=== PATIENT | female | born 1980 | race African-American/Black ===

== ENCOUNTER 2017-11-07 21:45 | Emergency (ER) | payer OTHER, MEDICAID ==
[~2017-11-07] VITALS: Ht 160 cm; Wt 130.5 kg
[2017-11-08 00:55] VITALS: BP 137/58
[2017-11-08] MEDS ORDERED: SODIUM CHLORIDE 0.9% 1,000 ML IV ONE (01:00)
[2017-11-08 01:23] LABS: CHLORIDE 106 mEq/L (98-107)
[2017-11-08 01:27] LABS: BASOPHILS % 0.5 % (0.0-2.0); EOSINOPHILS % 2.7 % (0.0-5.0); HEMATOCRIT. 31.8 % (36.0-48.0); HEMOGLOBIN. 10.3 g/dL (12.0-16.0); LYMPHOCYTES % 13.1 % (20.0-50.0); MEAN CORPUSCULAR VOLUME 82.9 fL (81.0-99.0); MEAN PLATELET VOLUME 7.9 fl (7.4-10.4); MONOCYTES % 8.8 % (2.0-8.0); NEUTROPHILS % 74.9 % (40.0-76.0); PLATELET 296 x1000/uL (130-400); RED BLOOD CELL COUNT 3.84 mill/uL (4.2-5.4); RED CELL DISTRIBUTION WIDTH 16.2 % (11.6-14.6)
[2017-11-08 01:36] LABS: CLARITY URINE CLEAR (CLEAR); COLOR URINE YELLOW (YELLOW); KETONES URINE TRACE (NEGATIVE); LEUKOCYTE ESTERASE URINE NEGATIVE (NEGATIVE); NITRITE URINE NEGATIVE (NEGATIVE); OCCULT BLOOD URINE NEGATIVE (NEGATIVE); PROTEIN URINE NEGATIVE (NEGATIVE); SPECIFIC GRAVITY URINE 1.031 (1.005-1.030)
[2017-11-08 01:54] LABS: *AMPHETAMINES SCREEN URINE NEGATIVE (NEGATIVE); *BARBITURATES SCREEN URINE NEGATIVE (NEGATIVE); *BENZODIAZEPINES SCREEN URINE NEGATIVE (NEGATIVE); *COCAINE SCREEN URINE NEGATIVE (NEGATIVE); CANNABINOID URINE SCREEN NEGATIVE (NEGATIVE); METHADONE URINE SCREEN NEGATIVE (NEGATIVE); OPIATES URINE SCREEN NEGATIVE (NEGATIVE); PHENCYCLIDINE URINE SCREEN NEGATIVE (NEGATIVE)
== END 2017-11-08 02:24 | disposition home or self-care (01) ==
LOC: ER 21:45
DX: R42 Dizziness and giddiness (principal); D50.9 Iron deficiency anemia, unspecified
CPT/HCPCS: 36415; 80048; 80305; 81003; 81025; 85025; 93005; 99285; J7030

== ENCOUNTER 2017-12-24 19:22 | Emergency (ER) | payer MEDICARE, MEDICAID ==
[~2017-12-24] VITALS: Ht 167.6 cm; Wt 137.2 kg
[2017-12-24 20:32] VITALS: BP 146/93
== END 2017-12-24 22:58 | disposition home or self-care (01) ==
LOC: ER 20:51
DX: S16.1XXA Strain of muscle, fascia and tendon at neck level, initial encounter (principal); M54.6 Pain in thoracic spine; V49.88XA Car occupant (driver) (passenger) injured in other specified transport accidents, initial encounter; Y93.89 Activity, other specified; Y99.8 Other external cause status; Y92.410 Unspecified street and highway as the place of occurrence of the external cause; Z98.890 Other specified postprocedural states
CPT/HCPCS: 81025; 99282

== ENCOUNTER 2018-10-23 19:19 | Emergency (ER) | payer MEDICARE, OTHER ==
[~2018-10-23] VITALS: Ht 172.7 cm; Wt 118.0 kg
[2018-10-23 21:08] LABS: BASOPHILS % 0.4 % (0.0-2.0); EOSINOPHILS % 0.9 % (0.0-5.0); HEMATOCRIT. 38.4 % (36.0-48.0); HEMOGLOBIN. 12.6 g/dL (12.0-16.0); LYMPHOCYTES % 19.5 % (20.0-50.0); MEAN CORPUSCULAR HEMOGLOBIN 28.4 pg (28.0-32.0); MEAN CORPUSCULAR VOLUME 86.3 fL (81.0-99.0); MEAN PLATELET VOLUME 8.6 fl (7.4-10.4); MONOCYTES % 5.9 % (2.0-8.0); NEUTROPHILS % 73.3 % (40.0-76.0); PLATELET 288 x1000/uL (130-400); RED BLOOD CELL COUNT 4.45 mill/uL (4.2-5.4); RED CELL DISTRIBUTION WIDTH 15.4 % (11.6-14.6)
[2018-10-23 21:09] LABS: CHLORIDE 105 mEq/L (98-107)
[2018-10-23 21:16] LABS: ETHANOL BLOOD < 10 mg/dL
[2018-10-23 23:07] LABS: CLARITY URINE CLEAR (CLEAR); COLOR URINE YELLOW (YELLOW); KETONES URINE NEGATIVE (NEGATIVE); LEUKOCYTE ESTERASE URINE NEGATIVE (NEGATIVE); NITRITE URINE NEGATIVE (NEGATIVE); OCCULT BLOOD URINE TRACE (NEGATIVE); PH URINE 5.5 (4.5-8.0); PROTEIN URINE NEGATIVE (NEGATIVE); SPECIFIC GRAVITY URINE 1.012 (1.005-1.030)
[2018-10-23 23:20] LABS: *BARBITURATES SCREEN URINE NEGATIVE (NEGATIVE)
[2018-10-23 23:21] LABS: *AMPHETAMINES SCREEN URINE NEGATIVE (NEGATIVE); *BENZODIAZEPINES SCREEN URINE NEGATIVE (NEGATIVE); *COCAINE SCREEN URINE NEGATIVE (NEGATIVE); METHADONE URINE SCREEN NEGATIVE (NEGATIVE); OPIATES URINE SCREEN NEGATIVE (NEGATIVE); PHENCYCLIDINE URINE SCREEN NEGATIVE (NEGATIVE)
[2018-10-23 23:22] LABS: CANNABINOID URINE SCREEN NEGATIVE (NEGATIVE)
[2018-10-24 03:16] VITALS: BP 134/83
== END 2018-10-24 03:08 | disposition home or self-care (01) ==
LOC: ER 19:19
DX: R42 Dizziness and giddiness (principal); R20.2 Paresthesia of skin; H54.8 Legal blindness, as defined in USA
CPT/HCPCS: 36415; 80053; 80305; 81003; 81025; 84484; 85025; 99283; G0482

== ENCOUNTER 2019-02-17 13:34 | Emergency (ER) | payer MEDICARE, MEDICAID ==
[~2019-02-17] VITALS: Ht 167.6 cm; Wt 109.0 kg
[2019-02-17 13:39] VITALS: BP 135/78
[2019-02-17] MEDS ORDERED: FLUORESCEIN SODIUM 1MG/STRIP BOTHEYE ONE (14:15)
== END 2019-02-17 15:25 | disposition home or self-care (01) ==
LOC: ER 13:34
DX: H53.8 Other visual disturbances (principal); F32.9 Major depressive disorder, single episode, unspecified; F20.9 Schizophrenia, unspecified; Z98.890 Other specified postprocedural states
CPT/HCPCS: 99283

== ENCOUNTER 2019-12-14 03:26 | Emergency (ER) | payer MEDICARE, MEDICAID ==
[~2019-12-14] VITALS: Ht 170.2 cm; Wt 100.0 kg
[2019-12-14] MEDS ORDERED: LORAZEPAM 2MG/ML CPJ IM ONE (05:45)
[2019-12-14] MEDS ORDERED: OLANZAPINE 10 MG/VIAL IM ONE (05:45)
[2019-12-14 06:08] LABS: BASOPHILS % 0.6 % (0.0-2.0); EOSINOPHILS % 0.7 % (0.0-5.0); HEMATOCRIT. 35.3 % (36.0-48.0); HEMOGLOBIN. 11.7 g/dL (12.0-16.0); LYMPHOCYTES % 19.1 % (20.0-50.0); MEAN CORPUSCULAR HEMOGLOBIN 28.4 pg (28.0-32.0); MEAN CORPUSCULAR VOLUME 85.7 fL (81.0-99.0); MEAN PLATELET VOLUME 8.8 fl (7.4-10.4); MONOCYTES % 6.6 % (2.0-8.0); PLATELET 304 x1000/uL (130-400); RED BLOOD CELL COUNT 4.12 mill/uL (4.2-5.4); RED CELL DISTRIBUTION WIDTH 14.5 % (11.6-14.6)
[2019-12-14 06:12] LABS: CHLORIDE 107 mEq/L (98-107)
[2019-12-14 06:16] LABS: ETHANOL BLOOD < 10 mg/dL
[2019-12-14 06:24] LABS: HCG SCREEN NEGATIVE
[2019-12-14 07:48] LABS: CLARITY URINE CLEAR (CLEAR); COLOR URINE YELLOW (YELLOW); KETONES URINE NEGATIVE (NEGATIVE); LEUKOCYTE ESTERASE URINE NEGATIVE (NEGATIVE); NITRITE URINE NEGATIVE (NEGATIVE); OCCULT BLOOD URINE NEGATIVE (NEGATIVE); PH URINE 5.5 (4.5-8.0); PROTEIN URINE 1+ (NEGATIVE); SPECIFIC GRAVITY URINE 1.026 (1.005-1.030)
[2019-12-14 08:04] LABS: *AMPHETAMINES SCREEN URINE NEGATIVE (NEGATIVE); *BARBITURATES SCREEN URINE NEGATIVE (NEGATIVE); *BENZODIAZEPINES SCREEN URINE NEGATIVE (NEGATIVE)
[2019-12-14 08:05] LABS: *COCAINE SCREEN URINE NEGATIVE (NEGATIVE); CANNABINOID URINE SCREEN NEGATIVE (NEGATIVE); METHADONE URINE SCREEN NEGATIVE (NEGATIVE); OPIATES URINE SCREEN NEGATIVE (NEGATIVE); PHENCYCLIDINE URINE SCREEN NEGATIVE (NEGATIVE)
[2019-12-14 10:42] VITALS: BP 128/80
== END 2019-12-14 15:43 | disposition home or self-care (01) ==
LOC: ER 03:26
DX: R45.1 Restlessness and agitation (principal); F23 Brief psychotic disorder; Z63.79 Other stressful life events affecting family and household
CPT/HCPCS: 36415; 80053; 80305; 80320; 81003; 81025; 84703; 85025; 96372; 99284; J2060; J3490; G0480

== ENCOUNTER 2020-12-17 23:45 | Emergency (ER) | payer OTHER, MEDICAID ==
[~2020-12-17] VITALS: Ht 172.7 cm; Wt 100.0 kg
[~2020-12-17 23:45] MED LIST: ARIP400S IM; LURA120T MT
[2020-12-18 00:35] LABS: BASOPHILS % 0.8 % (0.0-2.0); EOSINOPHILS % 0.8 % (0.0-5.0); HEMATOCRIT. 27.8 % (36.0-48.0); HEMOGLOBIN. 8.8 g/dL (12.0-16.0); LYMPHOCYTES % 16.1 % (20.0-50.0); MEAN CORPUSCULAR HEMOGLOBIN 22.9 pg (28.0-32.0); MEAN CORPUSCULAR VOLUME 72.2 fL (81.0-99.0); MEAN PLATELET VOLUME 7.5 fl (7.4-10.4); NEUTROPHILS % 76.3 % (40.0-76.0); PLATELET 448 x1000/uL (130-400); RED BLOOD CELL COUNT 3.85 mill/uL (4.2-5.4); RED CELL DISTRIBUTION WIDTH 19.3 % (11.6-14.6)
[2020-12-18 00:42] LABS: CHLORIDE 107 mEq/L (98-107)
[2020-12-18 00:44] LABS: ETHANOL BLOOD < 10 mg/dL
[2020-12-18 00:57] LABS: CLARITY URINE CLEAR (CLEAR); COLOR URINE DARK YELLOW (YELLOW); KETONES URINE 1+ (NEGATIVE); LEUKOCYTE ESTERASE URINE TRACE (NEGATIVE); NITRITE URINE NEGATIVE (NEGATIVE); OCCULT BLOOD URINE NEGATIVE (NEGATIVE); PROTEIN URINE 1+ (NEGATIVE); SPECIFIC GRAVITY URINE 1.036 (1.005-1.030)
[2020-12-18 01:08] LABS: METHADONE URINE SCREEN NEGATIVE (NEGATIVE); OPIATES URINE SCREEN NEGATIVE (NEGATIVE)
[2020-12-18 01:09] LABS: *AMPHETAMINES SCREEN URINE NEGATIVE (NEGATIVE); *BARBITURATES SCREEN URINE NEGATIVE (NEGATIVE); *BENZODIAZEPINES SCREEN URINE NEGATIVE (NEGATIVE); *COCAINE SCREEN URINE NEGATIVE (NEGATIVE); CANNABINOID URINE SCREEN NEGATIVE (NEGATIVE); PHENCYCLIDINE URINE SCREEN NEGATIVE (NEGATIVE)
[2020-12-18] MEDS ORDERED: ARIPIPRAZOLE 5MG TABLET PO SCH (06:00)
[2020-12-18] MEDS ORDERED: DIPHENHYDRAMINE 50MG/ML VIAL IM ONE (06:15)
[2020-12-18] MEDS ORDERED: LORAZEPAM 2MG/ML CPJ IM ONE (06:15)
[2020-12-18] MEDS ORDERED: HALOPERIDOL LACTATE 5MG/ML VIAL IM ONE (06:15)
[2020-12-18 13:30] VITALS: BP 122/78
== END 2020-12-18 14:02 | disposition home or self-care (01) ==
LOC: ER 23:45
DX: F33.3 Major depressive disorder, recurrent, severe with psychotic symptoms (principal); R45.851 Suicidal ideations; Z63.79 Other stressful life events affecting family and household; D50.9 Iron deficiency anemia, unspecified; H54.8 Legal blindness, as defined in USA
CPT/HCPCS: 36415; 80048; 80305; 80307; 80320; 80329; 81003; 81025; 85025; 93005; 96372; 99285; J1200; J1630; J2060; G0480

== ENCOUNTER 2022-10-02 12:55 | Emergency (ER) | payer OTHER, MEDICAID ==
[~2022-10-02] VITALS: Ht 170.2 cm; Wt 118.0 kg
[2022-10-02 13:50] VITALS: BP 174/101
[2022-10-02] MEDS ORDERED: IBUPROFEN 600MG TABLET PO STA (17:14)
== END 2022-10-02 17:44 | disposition left against medical advice (07) ==
LOC: ER 13:19
DX: R51.9 Headache, unspecified (principal); F32.9 Major depressive disorder, single episode, unspecified; F20.9 Schizophrenia, unspecified
CPT/HCPCS: 99281

== ENCOUNTER 2022-10-13 02:11 | Emergency (ER) | payer OTHER, MEDICAID ==
[~2022-10-13] VITALS: Ht 170.2 cm; Wt 120.0 kg
[2022-10-13 03:22] VITALS: BP 188/103
== END 2022-10-13 08:30 | disposition home or self-care (01) ==
LOC: ER 02:11
DX: H33.20 Serous retinal detachment, unspecified eye (principal); R51.9 Headache, unspecified; Z98.890 Other specified postprocedural states; Z86.59 Personal history of other mental and behavioral disorders
CPT/HCPCS: 99284

== ENCOUNTER 2024-08-22 18:28 | Emergency (ER) | payer MEDICARE, MEDICAID ==
[~2024-08-22] VITALS: Ht 172.7 cm; Wt 68.0 kg
[2024-08-22 18:35] VITALS: BP 146/86; PULSE 80; RESP 16; TEMP 97.7; O2SAT 100
[2024-08-22] MEDS ORDERED: ABIL10 MT (18:39)
[2024-08-22] MEDS ORDERED: ACETAMINOPHEN 325MG TABLET PO ONE (18:45)
== END 2024-08-22 19:26 | disposition home or self-care (01) ==
LOC: ER 18:28
DX: Z76.0 Encounter for issue of repeat prescription (principal); F20.9 Schizophrenia, unspecified; F32.A Depression, unspecified; Z00.00 Encounter for general adult medical examination without abnormal findings; Z79.899 Other long term (current) drug therapy; Z98.890 Other specified postprocedural states
CPT/HCPCS: 99283

== ENCOUNTER 2024-08-26 10:10 | Emergency (ER) | payer OTHER, MEDICAID ==
[~2024-08-26] VITALS: Ht 165.1 cm; Wt 80.0 kg
[~2024-08-26 10:10] MED LIST changes: +ABIL10 MT
[2024-08-26 10:12] VITALS: O2SAT 100
[2024-08-26 10:33] VITALS: BP 125/94; PULSE 79; RESP 16
[2024-08-26] MEDS: IBUPROFEN 600MG TABLET PO STA (10:33)
[2024-08-26 10:34] VITALS: TEMP 98.2
[2024-08-26] MEDS: ACETAMINOPHEN 325MG TABLET PO ONE (10:34)
[2024-08-26] MEDS: ARIPIPRAZOLE 5MG TABLET PO ONE (10:35)
[2024-08-26 11:14] LABS: BASOPHILS % 0.5 % (0.0-2.0); EOSINOPHILS % 1.3 % (0.0-5.0); HEMATOCRIT. 37.3 % (36.0-48.0); HEMOGLOBIN. 12.2 g/dL (12.0-16.0); LYMPHOCYTES % 26.7 % (20.0-50.0); MEAN CORPUSCULAR HEMOGLOBIN 28.4 pg (28.0-32.0); MEAN CORPUSCULAR HGB CONC 32.7 g/dL (31.0-37.0); MEAN CORPUSCULAR VOLUME 86.8 fL (81.0-99.0); MEAN PLATELET VOLUME 9.4 fl (7.4-10.4); MONOCYTES % 8.3 % (2.0-8.0); NEUTROPHILS % 63.2 % (40.0-76.0); PLATELET 209 x1000/uL (130-400); RED CELL DISTRIBUTION WIDTH 15.5 % (11.6-14.6); WHITE BLOOD COUNT 6.5 x1000/uL (4.5-11.0)
[2024-08-26 11:22] LABS: CHLORIDE 106 mEq/L (98-107); SODIUM 140 mEq/L (136-145)
[2024-08-26 11:24] LABS: CARBON DIOXIDE 26 mEq/L (21-32)
[2024-08-26 11:28] LABS: UREA NITROGEN BLOOD 11 mg/dL (9-23)
[2024-08-26 11:29] LABS: CREATININE 0.8 mg/dL (0.6-1.0); GLUCOSE 104 mg/dL (70-105)
[2024-08-26 11:35] LABS: ETHANOL BLOOD < 10 mg/dL (<10)
[2024-08-26] MEDS: POTASSIUM CHLORIDE 20MEQ TABLET SR PO NR (12:52)
[2024-08-26] MEDS ORDERED: ACET-2708 MT (13:34)
== END 2024-08-26 17:02 | disposition home or self-care (01) ==
LOC: ER 10:10
DX: R10.9 Unspecified abdominal pain (principal); F20.9 Schizophrenia, unspecified; F32.A Depression, unspecified; Z98.890 Other specified postprocedural states; Z79.899 Other long term (current) drug therapy
CPT/HCPCS: 80048; 80320; 85025; 36415; 99284; A4663; G0480

== ENCOUNTER 2024-08-29 06:16 | Emergency (ER) | payer MEDICARE, MEDICAID ==
[~2024-08-29] VITALS: Ht 172.7 cm; Wt 78.0 kg
[~2024-08-29 06:16] MED LIST changes: +ACET-2708 MT
[2024-08-29 06:18] VITALS: BP 136/79; PULSE 76; RESP 18; TEMP 98.7; O2SAT 98
[2024-08-29 10:28] LABS: *AMPHETAMINES SCREEN URINE NEGATIVE (NEGATIVE)
[2024-08-29 10:29] LABS: *BARBITURATES SCREEN URINE NEGATIVE (NEGATIVE); *BENZODIAZEPINES SCREEN URINE NEGATIVE (NEGATIVE); *COCAINE SCREEN URINE NEGATIVE (NEGATIVE); CANNABINOID URINE SCREEN NEGATIVE (NEGATIVE); ECSTASY MDMA SCREEN URINE NEGATIVE (NEGATIVE); METHADONE URINE SCREEN NEGATIVE (NEGATIVE); OPIATES URINE SCREEN NEGATIVE (NEGATIVE); PHENCYCLIDINE URINE SCREEN NEGATIVE (NEGATIVE)
== END 2024-08-29 12:53 | disposition home or self-care (01) ==
LOC: ER 06:16
DX: F31.9 Bipolar disorder, unspecified (principal); F20.9 Schizophrenia, unspecified; D64.9 Anemia, unspecified; F19.90 Other psychoactive substance use, unspecified, uncomplicated
CPT/HCPCS: 80305; 81025; 99283

== ENCOUNTER 2024-09-20 15:13 | Emergency (ER) | payer MEDICARE, MEDICAID ==
[~2024-09-20] VITALS: Ht 177.8 cm; Wt 73.0 kg
[2024-09-20] MEDS: LORAZEPAM 2MG/ML INJ IM ONE (23:04)
[2024-09-20] MEDS: DIPHENHYDRAMINE 50MG/ML VIAL IM ONE (23:04)
[2024-09-20] MEDS: HALOPERIDOL LACTATE 5MG/ML VIAL IM ONE (23:04)
[2024-09-20 23:55] VITALS: O2SAT 98
[2024-09-21 00:57] LABS: EOSINOPHILS % 1.8 % (0.0-5.0); HEMATOCRIT. 37.2 % (36.0-48.0); LYMPHOCYTES % 30.9 % (20.0-50.0); MEAN CORPUSCULAR HEMOGLOBIN 28.5 pg (28.0-32.0); MEAN CORPUSCULAR HGB CONC 32.2 g/dL (31.0-37.0); MEAN CORPUSCULAR VOLUME 88.6 fL (81.0-99.0); MEAN PLATELET VOLUME 9.8 fl (7.4-10.4); MONOCYTES % 8.1 % (2.0-8.0); NEUTROPHILS % 58.2 % (40.0-76.0); PLATELET 187 x1000/uL (130-400); RED CELL DISTRIBUTION WIDTH 16.6 % (11.6-14.6); WHITE BLOOD COUNT 5.8 x1000/uL (4.5-11.0)
[2024-09-21 01:03] LABS: *AMPHETAMINES SCREEN URINE NEGATIVE (NEGATIVE); *BARBITURATES SCREEN URINE NEGATIVE (NEGATIVE); *BENZODIAZEPINES SCREEN URINE NEGATIVE (NEGATIVE); *COCAINE SCREEN URINE NEGATIVE (NEGATIVE)
[2024-09-21 01:04] LABS: CANNABINOID URINE SCREEN NEGATIVE (NEGATIVE); ECSTASY MDMA SCREEN URINE NEGATIVE (NEGATIVE); METHADONE URINE SCREEN NEGATIVE (NEGATIVE); OPIATES URINE SCREEN NEGATIVE (NEGATIVE); PHENCYCLIDINE URINE SCREEN NEGATIVE (NEGATIVE)
[2024-09-21 01:05] LABS: CHLORIDE 107 mEq/L (98-107); POTASSIUM 3.4 mEq/L (3.5-5.1); SODIUM 142 mEq/L (136-145)
[2024-09-21 01:06] LABS: CARBON DIOXIDE 27 mEq/L (21-32)
[2024-09-21 01:07] LABS: CALCIUM 9.6 mg/dL (8.7-10.4)
[2024-09-21 01:11] LABS: CREATININE 0.9 mg/dL (0.6-1.0)
[2024-09-21 01:12] LABS: GLUCOSE 76 mg/dL (70-105); UREA NITROGEN BLOOD 11 mg/dL (9-23)
[2024-09-21 01:14] LABS: ACETAMINOPHEN < 2 ug/mL (10-30); HCG SCREEN NEGATIVE
[2024-09-21 01:18] LABS: ETHANOL BLOOD < 10 mg/dL (<10)
[2024-09-21 10:53] VITALS: BP 106/58; PULSE 90; RESP 18; TEMP 36.72516; O2SAT 100
== END 2024-09-21 12:00 | disposition home or self-care (01) ==
LOC: ER 15:13
DX: R46.2 Strange and inexplicable behavior (principal); R45.1 Restlessness and agitation; H25.813 Combined forms of age-related cataract, bilateral; Z79.899 Other long term (current) drug therapy; D64.9 Anemia, unspecified; Z20.822 Contact with and (suspected) exposure to COVID-19
CPT/HCPCS: 80305; 80048; 80307; 80329; 80320; 84703; 85025; 36415; 96372; 99291; 87426; J1200; J1630; J2060; 99284; G0480

== ENCOUNTER 2025-02-17 12:04 | Emergency (ER) | payer OTHER, MEDICAID ==
[~2025-02-17] VITALS: Ht 170.2 cm; Wt 72.0 kg
[2025-02-17 12:05] VITALS: O2SAT 100
[2025-02-17] MEDS ORDERED: KETOROLAC 30MG/ML VIAL IV ONE (12:30)
[2025-02-17] MEDS ORDERED: METOCLOPRAMIDE HCL 10MG/2ML VIAL IV ONE (12:30)
[2025-02-17] MEDS: ACETAMINOPHEN 325MG TABLET PO ONE (13:21)
[2025-02-17 13:27] VITALS: BP 110/64; PULSE 93; RESP 14; TEMP 36.8; O2SAT 100
== END 2025-02-17 13:35 | disposition left against medical advice (07) ==
LOC: ER 12:04
DX: R51.9 Headache, unspecified (principal); I10 Essential (primary) hypertension; Z79.899 Other long term (current) drug therapy
CPT/HCPCS: 99283

== ENCOUNTER 2025-04-11 13:04 | Emergency (ER) | payer OTHER, MEDICAID ==
[~2025-04-11] VITALS: Ht 167.6 cm; Wt 88.0 kg
[2025-04-11 13:10] VITALS: BP 119/83; PULSE 87; RESP 17; TEMP 36.6; O2SAT 98
== END 2025-04-11 13:51 | disposition left against medical advice (07) ==
LOC: ER 13:04
DX: Z59.00 Homelessness unspecified (principal); Z53.21 Procedure and treatment not carried out due to patient leaving prior to being seen by health care provider

== ENCOUNTER 2025-05-12 15:18 | Emergency (ER) | payer OTHER, MEDICAID ==
[~2025-05-12] VITALS: Ht 177.8 cm; Wt 73.0 kg
[2025-05-12 15:19] VITALS: O2SAT 97
[2025-05-12] MEDS ORDERED: LORAZEPAM 1MG TABLET PO ONE (16:45)
[2025-05-12] MEDS ORDERED: ACET-3800 MT (17:15)
[2025-05-12 17:20] VITALS: BP 126/85; PULSE 80; RESP 14; TEMP 36.8; O2SAT 100
[2025-05-12] MEDS: ACETAMINOPHEN 325MG TABLET PO ONE (17:20)
== END 2025-05-12 17:42 | disposition home or self-care (01) ==
LOC: ER 15:18
DX: M54.6 Pain in thoracic spine (principal); Z79.899 Other long term (current) drug therapy
CPT/HCPCS: 71045; 99283

== ENCOUNTER 2025-05-15 00:42 | Emergency (ER) | payer OTHER, MEDICAID ==
[~2025-05-15] VITALS: Ht 170.2 cm; Wt 65.0 kg
[~2025-05-15 00:42] MED LIST changes: +ACET-3800 MT
[2025-05-15 00:44] VITALS: O2SAT 100
[2025-05-15 01:20] LABS: BASOPHILS % 0.9 % (0.0-2.0); EOSINOPHILS % 1.2 % (0.0-5.0); HEMATOCRIT. 36.9 % (36.0-48.0); HEMOGLOBIN. 11.8 g/dL (12.0-16.0); LYMPHOCYTES % 35.5 % (20.0-50.0); MEAN PLATELET VOLUME 8.6 fl (7.4-10.4); MONOCYTES % 8.4 % (2.0-8.0); NEUTROPHILS % 54.0 % (40.0-76.0); PLATELET 223 x1000/uL (130-400); RED BLOOD CELL COUNT 4.03 mill/uL (4.2-5.4); RED CELL DISTRIBUTION WIDTH 14.5 % (11.6-14.6)
[2025-05-15 02:01] LABS: INR 1.0
[2025-05-15 02:49] LABS: CREATININE 0.8 mg/dL (0.6-1.0)
[2025-05-15 02:50] LABS: ETHANOL BLOOD < 10 mg/dL (<10); UREA NITROGEN BLOOD 13 mg/dL (9-23)
[2025-05-15 02:51] LABS: ASPARTATE AMINOTRANSFERASE 19 IU/L (<34); TROPONIN I HIGH SENSITIVITY < 4 ng/L (3.0-34)
[2025-05-15 02:52] LABS: BILIRUBIN DIRECT < 0.1 mg/dL (<=3.0); BILIRUBIN TOTAL 0.3 mg/dL (0.1-1.0); PROTEIN TOTAL 7.9 g/dL (6.0-8.3)
[2025-05-15] MEDS ORDERED: MORPHINE SULFATE 4 MG/ML INJ (FOR IV/IM USE) IV SCH (03:00)
[2025-05-15] MEDS: ASPIRIN 325MG EC TABLET PO SCH (04:05)
[2025-05-15] MEDS: ACETAMINOPHEN WITH CODEINE 300/30MG TABLET PO ONE (04:06)
[2025-05-15 04:49] LABS: TROPONIN I HIGH SENSITIVITY < 4 ng/L (3.0-34)
[2025-05-15] MEDS ORDERED: ASPI-1497 MT (04:58)
[2025-05-15 05:10] VITALS: BP 110/78; PULSE 71; RESP 12; TEMP 36.8; O2SAT 99
== END 2025-05-15 05:10 | disposition home or self-care (01) ==
LOC: ER 00:42 → CMPBEDREQ 05-16 08:31
DX: R07.89 Other chest pain (principal); H54.7 Unspecified visual loss; R06.02 Shortness of breath; Z00.00 Encounter for general adult medical examination without abnormal findings; Z79.899 Other long term (current) drug therapy; Z79.82 Long term (current) use of aspirin; Z98.890 Other specified postprocedural states; Z59.00 Homelessness unspecified
CPT/HCPCS: 36415; 71045; 80048; 80076; 80320; 83880; 84484; 85025; 93005; 99285; G0480

== ENCOUNTER 2025-06-15 15:57 | Emergency (ER) | payer OTHER, MEDICAID ==
[~2025-06-15] VITALS: Ht 167.6 cm; Wt 64.0 kg
[~2025-06-15 15:57] MED LIST changes: -ARIP400S IM; +ARIP400S5 IM; +ASPI-1497 MT
[2025-06-15 16:08] VITALS: O2SAT 98
[2025-06-15 16:37] LABS: BASOPHILS % 0.7 % (0.0-2.0); EOSINOPHILS % 0.5 % (0.0-5.0); HEMATOCRIT. 33.8 % (36.0-48.0); HEMOGLOBIN. 11.2 g/dL (12.0-16.0); LYMPHOCYTES % 16.6 % (20.0-50.0); MEAN PLATELET VOLUME 8.2 fl (7.4-10.4); MONOCYTES % 7.5 % (2.0-8.0); NEUTROPHILS % 74.7 % (40.0-76.0); PLATELET 232 x1000/uL (130-400); RED BLOOD CELL COUNT 3.76 mill/uL (4.2-5.4); RED CELL DISTRIBUTION WIDTH 14.6 % (11.6-14.6)
[2025-06-15 16:49] LABS: CREATININE 0.8 mg/dL (0.6-1.0)
[2025-06-15 16:50] LABS: UREA NITROGEN BLOOD 13 mg/dL (9-23)
[2025-06-15 16:52] LABS: HCG SCREEN NEGATIVE
[2025-06-15 18:50] VITALS: BP 115/76; PULSE 89; RESP 20; TEMP 36.7; O2SAT 97
[2025-06-15] MEDS: ACETAMINOPHEN 325MG TABLET PO ONE (18:50)
== END 2025-06-15 18:50 | disposition home or self-care (01) ==
LOC: ER 15:57
DX: O99.343 Other mental disorders complicating pregnancy, third trimester (principal); O26.893 Other specified pregnancy related conditions, third trimester; O10.913 Unspecified pre-existing hypertension complicating pregnancy, third trimester; Z3A.32 32 weeks gestation of pregnancy; Z79.899 Other long term (current) drug therapy
CPT/HCPCS: 36415; 80048; 84703; 85025; 99283

== ENCOUNTER 2025-07-07 14:14 | Emergency (ER) | payer OTHER, MEDICAID ==
[~2025-07-07] VITALS: Ht 170.2 cm; Wt 69.0 kg
[~2025-07-07 14:14] MED LIST changes: -ACET-2708 MT; -ACET-3800 MT; -ARIP400S5 IM
[2025-07-07 14:22] VITALS: BP 118/70; PULSE 72; RESP 18; TEMP 36.9; O2SAT 99
== END 2025-07-07 16:24 | disposition left against medical advice (07) ==
LOC: ER 14:14
DX: N93.9 Abnormal uterine and vaginal bleeding, unspecified (principal)
CPT/HCPCS: 99281

== ENCOUNTER 2025-07-11 09:58 | Inpatient (IN) | payer OTHER, MEDICAID ==
[~2025-07-11] VITALS: Ht 322.6 cm; Wt 96.2 kg
[2025-07-11 10:04] VITALS: O2SAT 98
[2025-07-11 11:06] LABS: BASOPHILS % 0.7 % (0.0-2.0); EOSINOPHILS % 1.2 % (0.0-5.0); HEMATOCRIT. 36.8 % (36.0-48.0); HEMOGLOBIN. 12.1 g/dL (12.0-16.0); LYMPHOCYTES % 23.4 % (20.0-50.0); MEAN PLATELET VOLUME 8.2 fl (7.4-10.4); MONOCYTES % 4.6 % (2.0-8.0); NEUTROPHILS % 70.1 % (40.0-76.0); PLATELET 288 x1000/uL (130-400); RED BLOOD CELL COUNT 4.08 mill/uL (4.2-5.4); RED CELL DISTRIBUTION WIDTH 14.7 % (11.6-14.6)
[2025-07-11 11:17] LABS: CREATININE 0.8 mg/dL (0.6-1.0); UREA NITROGEN BLOOD 9 mg/dL (9-23)
[2025-07-11 15:05] LABS: CLARITY URINE CLEAR (CLEAR); COLOR URINE YELLOW (YELLOW); GLUCOSE URINE NEGATIVE (NEGATIVE); KETONES URINE NEGATIVE (NEGATIVE); LEUKOCYTE ESTERASE URINE NEGATIVE (NEGATIVE); NITRITE URINE NEGATIVE (NEGATIVE); OCCULT BLOOD URINE TRACE (NEGATIVE); PH URINE 5.0 (4.5-8.0); PROTEIN URINE NEGATIVE (NEGATIVE); SPECIFIC GRAVITY URINE 1.030 (1.005-1.030); UROBILINOGEN URINE 1.0 E.U./dL (0.2-1.0)
[2025-07-11 15:24] LABS: MUCUS URINE 1+ /lpf (< = 2+); SQUAMOUS EPITHELIAL CELL URINE 3+ /lpf (RARE/1+)
[2025-07-11 15:26] LABS: BACTERIA URINE TRACE; WBC URINE 0-2 /hpf (0-2)
[2025-07-11 15:27] LABS: *AMPHETAMINES SCREEN URINE NEGATIVE (NEGATIVE); *BARBITURATES SCREEN URINE NEGATIVE (NEGATIVE); *BENZODIAZEPINES SCREEN URINE NEGATIVE (NEGATIVE); *COCAINE SCREEN URINE NEGATIVE (NEGATIVE); CANNABINOID URINE SCREEN NEGATIVE (NEGATIVE); ECSTASY MDMA SCREEN URINE NEGATIVE (NEGATIVE); METHADONE URINE SCREEN NEGATIVE (NEGATIVE); OPIATES URINE SCREEN NEGATIVE (NEGATIVE); PHENCYCLIDINE URINE SCREEN NEGATIVE (NEGATIVE)
[2025-07-11] MEDS ORDERED: IPRATROPIUM/ALBUTEROL 0.5-3(2.5)MG/3ML NEB HHN PRN (15:45)
[2025-07-11] MEDS ORDERED: ONDANSETRON HCL 4MG/2ML INJ IV PRN (15:45)
[2025-07-11] MEDS ORDERED: CLONIDINE 0.1MG TABLET PO PRN (15:45)
[2025-07-12 08:10] LABS: BASOPHILS % 1.2 % (0.0-2.0); EOSINOPHILS % 1.9 % (0.0-5.0); HEMATOCRIT. 39.0 % (36.0-48.0); HEMOGLOBIN. 12.6 g/dL (12.0-16.0); LYMPHOCYTES % 30.3 % (20.0-50.0); MEAN PLATELET VOLUME 8.1 fl (7.4-10.4); MONOCYTES % 6.5 % (2.0-8.0); NEUTROPHILS % 60.1 % (40.0-76.0); PLATELET 262 x1000/uL (130-400); RED BLOOD CELL COUNT 4.29 mill/uL (4.2-5.4); RED CELL DISTRIBUTION WIDTH 14.4 % (11.6-14.6)
[2025-07-12 08:33] LABS: CREATININE 0.7 mg/dL (0.6-1.0); UREA NITROGEN BLOOD 15 mg/dL (9-23)
[2025-07-12 09:10] VITALS: BP 107/62; PULSE 66; RESP 16; TEMP 36.6; O2SAT 100
[2025-07-12 11:11] VITALS: BP 107/62; PULSE 66; RESP 18; TEMP 36.6404
[2025-07-12 12:00] VITALS: BP 110/63; PULSE 83; RESP 17; TEMP 36.6; O2SAT 98
[2025-07-12] MEDS ORDERED: *PATIENT'S OWN MEDICATION STORAGE XX SCH (14:00)
[2025-07-12] MEDS ORDERED: LORAZEPAM 0.5MG TABLET PO PRN (14:15)
[2025-07-12 16:00] VITALS: BP 101/50; PULSE 68; RESP 16; TEMP 36.4; O2SAT 100
[2025-07-12 20:00] VITALS: BP 100/53; PULSE 75; RESP 16; TEMP 36.5; O2SAT 98
[2025-07-13] VITALS: BP 115/67; PULSE 72; RESP 18; TEMP 36.5; O2SAT 100
[2025-07-13] MEDS: ACETAMINOPHEN 325MG TABLET PO PRN (01:29)
[2025-07-13 04:00] VITALS: BP 110/61; PULSE 67; RESP 17; TEMP 36.4; O2SAT 99
[2025-07-13 08:00] VITALS: BP 114/62; PULSE 75; RESP 20; TEMP 36.7; O2SAT 100
[2025-07-13] MEDS: ARIPIPRAZOLE 5MG TABLET PO SCH (09:31)
[2025-07-13 12:00] VITALS: PULSE 74; RESP 18; TEMP 36.7; O2SAT 100
[2025-07-13 16:00] VITALS: BP 116/65; PULSE 76; RESP 20; TEMP 36.5; O2SAT 100
[2025-07-13 20:00] VITALS: BP 118/70; PULSE 91; RESP 18; TEMP 36.9; O2SAT 99
[2025-07-14] VITALS: BP 106/69; PULSE 77; RESP 18; TEMP 36.2; O2SAT 98
[2025-07-14 08:00] VITALS: BP 105/70; PULSE 72; RESP 18; TEMP 36.7; O2SAT 99
[2025-07-14 12:00] VITALS: BP 106/64; PULSE 71; RESP 17; TEMP 36.5; O2SAT 99
[2025-07-14 16:00] VITALS: BP 116/64; PULSE 70; RESP 16; TEMP 36.6; O2SAT 99
[2025-07-14 20:00] VITALS: BP 105/58; PULSE 66; RESP 18; TEMP 36.7; O2SAT 99
[2025-07-15] VITALS: BP 109/58; PULSE 71; RESP 20; TEMP 36.3; O2SAT 100
[2025-07-15 04:00] VITALS: BP 107/58; PULSE 63; RESP 18; TEMP 36.3; O2SAT 100
[2025-07-15 08:00] VITALS: BP 118/79; PULSE 64; RESP 18; TEMP 36.6; O2SAT 100
[2025-07-15 12:00] VITALS: BP 103/64; PULSE 63; RESP 18; TEMP 36.7; O2SAT 99
[2025-07-15 16:00] VITALS: BP 113/65; PULSE 68; RESP 18; TEMP 36.6; O2SAT 100
[2025-07-15 20:00] VITALS: BP 108/68; PULSE 71; RESP 16; TEMP 36.3; O2SAT 100
[2025-07-16] VITALS: BP 114/65; PULSE 68; RESP 20; TEMP 36.1; O2SAT 100
[2025-07-16 04:00] VITALS: BP 99/53; PULSE 60; RESP 18; TEMP 36.4; O2SAT 97
[2025-07-16 08:00] VITALS: BP 105/77; PULSE 75; RESP 18; TEMP 36.2; O2SAT 98
[2025-07-16] MEDS ORDERED: LURA120T MT (11:59)
[2025-07-16] MEDS ORDERED: ASPI-1497 MT (11:59)
[2025-07-16] MEDS ORDERED: ABIL10 MT (11:59)
[2025-07-16 12:00] VITALS: BP 119/75; PULSE 78; RESP 17; TEMP 36.3; O2SAT 99
[2025-07-16 16:00] VITALS: BP 112/77; PULSE 75; RESP 17; TEMP 36.9; O2SAT 98
[2025-07-16 20:00] VITALS: BP 103/69; PULSE 77; RESP 18; TEMP 36.4; O2SAT 96
[2025-07-17 04:00] VITALS: BP 112/72; PULSE 68; RESP 18; TEMP 36.4; O2SAT 98
[2025-07-17 08:00] VITALS: BP 120/77; PULSE 69; RESP 20; TEMP 36.3
[2025-07-17 12:00] VITALS: BP 102/58; PULSE 76; RESP 20; TEMP 36.4; O2SAT 99
[2025-07-17 16:00] VITALS: BP 123/75; PULSE 73; RESP 18; TEMP 36.2; O2SAT 99
[2025-07-17 20:00] VITALS: BP 117/72; PULSE 78; RESP 16; TEMP 36.5; O2SAT 98
[2025-07-17 22:25] LABS: BASOPHILS % 1.1 % (0.0-2.0); EOSINOPHILS % 2.8 % (0.0-5.0); HEMATOCRIT. 36.1 % (36.0-48.0); HEMOGLOBIN. 11.9 g/dL (12.0-16.0); LYMPHOCYTES % 40.4 % (20.0-50.0); MEAN PLATELET VOLUME 9.0 fl (7.4-10.4); MONOCYTES % 5.4 % (2.0-8.0); NEUTROPHILS % 50.3 % (40.0-76.0); PLATELET 265 x1000/uL (130-400); RED BLOOD CELL COUNT 4.04 mill/uL (4.2-5.4); RED CELL DISTRIBUTION WIDTH 13.8 % (11.6-14.6)
[2025-07-17 22:51] LABS: CREATININE 0.7 mg/dL (0.6-1.0); UREA NITROGEN BLOOD 13 mg/dL (9-23)
[2025-07-17 22:53] LABS: ASPARTATE AMINOTRANSFERASE 25 IU/L (<34); BILIRUBIN TOTAL 0.3 mg/dL (0.1-1.0); PROTEIN TOTAL 7.5 g/dL (6.0-8.3)
[2025-07-18] VITALS: BP 101/66; PULSE 63; RESP 18; TEMP 36.4; O2SAT 99
[2025-07-18 04:00] VITALS: BP 104/70; PULSE 60; RESP 16; TEMP 36.2; O2SAT 99
[2025-07-18 12:00] VITALS: BP 108/76; PULSE 65; RESP 20; TEMP 36.2; O2SAT 99
[2025-07-18 16:00] VITALS: BP 98/52; PULSE 77; RESP 20; TEMP 36.2; O2SAT 97
[2025-07-18 20:00] VITALS: BP 95/54; PULSE 59; RESP 16; TEMP 36.3; O2SAT 100
[2025-07-19] VITALS (7 sets, daily range): BP systolic 93–113; BP diastolic 54–68; PULSE 56–74; RESP 16–18; TEMP 36.2–36.7; O2SAT 98–100
[2025-07-19 06:20] LABS: CREATININE 0.7 mg/dL (0.6-1.0)
[2025-07-19 06:21] LABS: PLATELET 222 x1000/uL (130-400); RED BLOOD CELL COUNT 4.14 mill/uL (4.2-5.4); RED CELL DISTRIBUTION WIDTH 14.0 % (11.6-14.6); UREA NITROGEN BLOOD 10 mg/dL (9-23)
[2025-07-19 06:22] LABS: ASPARTATE AMINOTRANSFERASE 17 IU/L (<34)
[2025-07-19 06:23] LABS: BILIRUBIN DIRECT 0.1 mg/dL (<=3.0); BILIRUBIN TOTAL 0.5 mg/dL (0.1-1.0); PROTEIN TOTAL 7.3 g/dL (6.0-8.3)
[2025-07-19 20:51] LABS: HEPATITIS A AB IGM NEGATIVE (Negative); HEPATITIS B CORE AB IGM NEGATIVE (Negative); HEPATITIS C AB NON REACTIVE (Neg) (Negative)
[2025-07-20] VITALS: BP 104/58; PULSE 68; RESP 16; TEMP 36.6; O2SAT 100
[2025-07-20 04:00] VITALS: BP 95/56; PULSE 62; RESP 16; TEMP 36.6; O2SAT 97
[2025-07-20 08:00] VITALS: BP 107/63; PULSE 68; RESP 18; TEMP 36.8; O2SAT 99
[2025-07-20 12:00] VITALS: BP 113/67; PULSE 64; RESP 17; TEMP 36.7; O2SAT 98
== END 2025-07-20 13:29 | disposition home or self-care (01) | DRG 445 ==
LOC: ER 09:58 → 8EST 13:41 → EDBEDREQ 13:42 → EDBEDREQTM 13:42 → ENRESERV 07-12 07:00
PROVIDERS: ADMIT Internal Medicine; ATTEND Internal Medicine
DX: K80.70 Calculus of gallbladder and bile duct without cholecystitis without obstruction (principal); R45.851 Suicidal ideations; F32.A Depression, unspecified; I10 Essential (primary) hypertension; F20.9 Schizophrenia, unspecified; H54.8 Legal blindness, as defined in USA; H40.9 Unspecified glaucoma; K76.0 Fatty (change of) liver, not elsewhere classified; R16.0 Hepatomegaly, not elsewhere classified; F17.210 Nicotine dependence, cigarettes, uncomplicated; Z79.899 Other long term (current) drug therapy
CPT/HCPCS: 36415; 74181; 76700; 80048; 80053; 80076; 80305; 80320; 81003; 82150; 85025; 85027; 86705; 86709; 87340; 87426; 93005; 99285; G0480

== ENCOUNTER 2025-07-20 17:07 | Emergency (ER) | payer OTHER, MEDICAID ==
[~2025-07-20] VITALS: Ht 170.2 cm; Wt 88.0 kg
[2025-07-20 17:19] VITALS: TEMP 36.7; O2SAT 99
[2025-07-20 19:21] VITALS: BP 124/72; PULSE 64; RESP 15; O2SAT 99
== END 2025-07-20 19:22 | disposition home or self-care (01) ==
LOC: ER 17:07
DX: H54.8 Legal blindness, as defined in USA (principal); F20.9 Schizophrenia, unspecified; I10 Essential (primary) hypertension; Z79.899 Other long term (current) drug therapy; Z79.82 Long term (current) use of aspirin
CPT/HCPCS: 99282

== ENCOUNTER 2025-07-22 00:30 | Emergency (ER) | payer OTHER, MEDICAID ==
[~2025-07-22] VITALS: Ht 167.6 cm; Wt 67.0 kg
[2025-07-22 00:43] VITALS: O2SAT 100
[2025-07-22 02:11] LABS: CLARITY URINE CLEAR (CLEAR); COLOR URINE YELLOW (YELLOW); GLUCOSE URINE NEGATIVE (NEGATIVE); KETONES URINE NEGATIVE (NEGATIVE); LEUKOCYTE ESTERASE URINE NEGATIVE (NEGATIVE); NITRITE URINE NEGATIVE (NEGATIVE); OCCULT BLOOD URINE NEGATIVE (NEGATIVE); PH URINE 6.0 (4.5-8.0); PROTEIN URINE NEGATIVE (NEGATIVE); SPECIFIC GRAVITY URINE 1.030 (1.005-1.030); UROBILINOGEN URINE 1.0 E.U./dL (0.2-1.0)
[2025-07-22 02:26] LABS: BASOPHILS % 1.0 % (0.0-2.0); EOSINOPHILS % 3.0 % (0.0-5.0); HEMATOCRIT. 35.3 % (36.0-48.0); HEMOGLOBIN. 11.9 g/dL (12.0-16.0); LYMPHOCYTES % 36.1 % (20.0-50.0); MEAN PLATELET VOLUME 8.3 fl (7.4-10.4); MONOCYTES % 6.6 % (2.0-8.0); NEUTROPHILS % 53.3 % (40.0-76.0); PLATELET 233 x1000/uL (130-400); RED BLOOD CELL COUNT 3.97 mill/uL (4.2-5.4); RED CELL DISTRIBUTION WIDTH 14.2 % (11.6-14.6)
[2025-07-22 02:48] LABS: CREATININE 0.9 mg/dL (0.6-1.0)
[2025-07-22 02:49] LABS: HCG SCREEN NEGATIVE; UREA NITROGEN BLOOD 14 mg/dL (9-23)
[2025-07-22 02:50] LABS: ASPARTATE AMINOTRANSFERASE 21 IU/L (<34); BILIRUBIN DIRECT 0.1 mg/dL (<=3.0); BILIRUBIN TOTAL 0.4 mg/dL (0.1-1.0); PROTEIN TOTAL 7.4 g/dL (6.0-8.3)
[2025-07-22 02:54] LABS: *AMPHETAMINES SCREEN URINE NEGATIVE (NEGATIVE); *BARBITURATES SCREEN URINE NEGATIVE (NEGATIVE); *BENZODIAZEPINES SCREEN URINE NEGATIVE (NEGATIVE); *COCAINE SCREEN URINE NEGATIVE (NEGATIVE); CANNABINOID URINE SCREEN NEGATIVE (NEGATIVE); ECSTASY MDMA SCREEN URINE NEGATIVE (NEGATIVE); METHADONE URINE SCREEN NEGATIVE (NEGATIVE); OPIATES URINE SCREEN NEGATIVE (NEGATIVE); PHENCYCLIDINE URINE SCREEN NEGATIVE (NEGATIVE)
[2025-07-22 08:18] VITALS: BP 99/63; PULSE 71; RESP 18; TEMP 35.8; O2SAT 100
== END 2025-07-22 08:35 ==
LOC: ER 00:30
DX: R45.851 Suicidal ideations (principal); F20.9 Schizophrenia, unspecified; F31.9 Bipolar disorder, unspecified; I10 Essential (primary) hypertension; Z79.899 Other long term (current) drug therapy; Z20.822 Contact with and (suspected) exposure to COVID-19; Z79.82 Long term (current) use of aspirin
CPT/HCPCS: 36415; 80048; 80076; 80305; 80307; 80320; 80329; 81003; 84703; 85025; 87426; 99285; G0480